=== PATIENT | female | born 1995 | race Caucasian/White ===

== ENCOUNTER 2018-04-24 04:14 | Emergency (ER) | payer BC ==
[2018-04-24] MEDS ORDERED: Diphenoxylat/Atrop 2.5-0.025M* 1 TAB PO ONE (04:34)
[2018-04-24] MEDS ORDERED: NS 0.9% 1000 ML* 2,000 ML IV ONE (04:34)
[2018-04-24] MEDS ORDERED: Metoclopramide IV* 5 MG/ML 2 ML VIAL IV SLOW PU ONE (04:34)
[2018-04-24] MEDS ORDERED: Dicyclomine CAP* 10 MG PO ONE (04:35)
[2018-04-24 05:58] LABS: ABS Basophils 0.1 10^3/ul (0-0.2); ABS Eosinophils 0.1 10^3/ul (0-0.6); ABS Monocytes 0.9 10^3/ul (0-0.8); ABS Neutrophils 12.6 10^3/ul (1.5-7.7); ABS Nucleated RBC 0 10^3/ul; Eosinophil % 0.6 % (0-6); Hematocrit 43 % (35-47); Hemoglobin 14.3 g/dl (12.0-16.0); Lymphocyte % 12.7 % (25-47); Mean Corpuscular HGB Conc 34 g/dl (31-36); Mean Corpuscular Hemoglobin 31 pg (27-31); Mean Corpuscular Volume 93 fL (80-97); Mean Platelet Volume 8.8 um3 (7.4-10.4); Nucleated Red Blood Cells % 0; Platelet Count 299 10^3/ul (150-450); Red Blood Count 4.63 10^6/ul (4.0-5.4); Red Cell Distribution Width 13 % (10.5-15); White Blood Count 15.5 10^3/ul (3.5-10.8)
[2018-04-24 06:10] LABS: EGFR Non-African American 106.4 (>60)
--- NOTE | 2018-04-24 06:45 | ED ---
Ortega Oliveira Rebecca, scribed for Michelle Alba MD on 04/24/18 at 0435 . Abdominal Pain/Female - HPI Summary HPI Summary: Pt is a 22 y/o F who presents to ED c/o abdominal pain. Sx began suddenly this morning at 0300. Pain is in the periumbilical region and on triage is severe, ranked 10/10 and characterized as sharp. Sx aggravated and alleviated by nothing. Additionally c/o N/V/D. PMHx type 1 DM. Does not remember what she had for dinner. - History of Current Complaint Chief Complaint: EDAbdPain Stated Complaint: ABD PAIN Time Seen by Provider: 04/24/18 04:25 Hx Obtained From: Patient Onset/Duration: Sudden Onset, Still Present Severity Currently: Severe Pain Intensity: 10 Pain Scale Used: 0-10 Numeric Location: Umbilical Character: Sharp Aggravating Factor(s): Nothing Alleviating Factor(s): Nothing Associated Signs and Symptoms: Positive: Nausea, Vomiting, Diarrhea Allergies/Adverse Reactions: Allergies Allergy/AdvReac Type Severity Reaction Status Date / Time insulin lispro Allergy Hives Verified 04/24/18 04:33 [From Humalog Mix] insulin lispro protamine Allergy Hives Verified 04/24/18 04:33 [From Humalog Mix] PMH/Surg Hx/FS Hx/Imm Hx Endocrine/Hematology History: Reports: Hx Diabetes Cardiovascular History: Denies: Hx Pacemaker/ICD Sensory History: Denies: Hx Hearing Aid Psychiatric History: Denies: Hx Panic Disorder - Surgical History Surgery Procedure, Year, and Place: Infectious Disease History: No Infectious Disease History: Denies: Traveled Outside the [place] in Last 30 Days - Family History Known Family History: Negative: Hypertension - Social History Substance Use Type: Reports: None Smoking Status (MU): Never Smoked Tobacco Review of Systems Negative: Fever Positive: Abdominal Pain, Vomiting, Diarrhea, Nausea All Other Systems Reviewed And Are Negative: Yes Physical Exam - Summary Physical Exam Summary: VITAL SIGNS: Reviewed. GENERAL: ~Patient is a well-developed and nourished female who is lying comfortable in the stretcher. Patient is not in any acute respiratory distress. HEAD AND FACE: No signs of trauma. No ecchymosis, hematomas or skull depressions. No sinus tenderness. EYES: PERRLA, EOMI x 2, No injected conjunctiva, no nystagmus. EARS: Hearing grossly intact. Ear canals and tympanic membranes are within normal limits. MOUTH: Oropharynx within normal limits. NECK: Supple, trachea is midline, no adenopathy, no JVD, no carotid bruit, no c- spine tenderness, neck with full ROM. CHEST: Symmetric, no tenderness at palpation LUNGS: Clear to auscultation bilaterally. No wheezing or crackles. CVS: Regular rate and rhythm, S1 and S2 present, no murmurs or gallops appreciated. ABDOMEN: Soft, non-tender. No signs of distention. No rebound no guarding, and no masses palpated. Bowel sounds are normal. EXTREMITIES: FROM in all major joints, no edema, no cyanosis or clubbing. NEURO: Alert and oriented x 3. No acute neurological deficits. Speech is normal and follows commands. SKIN: Dry and warm ~ Triage Information Reviewed: Yes Vital Signs On Initial Exam: Initial Vitals Temp Pulse Resp BP Pulse Ox 97.2 F 85 18 124/76 98 04/24/18 04:25 04/24/18 04:25 04/24/18 04:25 04/24/18 04:25 04/24/18 04:25 Vital Signs Reviewed: Yes Diagnostics - Vital Signs Vital Signs Temp Pulse Resp BP Pulse Ox 04/24/18 04:25 97.2 F 85 18 124/76 98 - Laboratory Result Diagrams: 04/24/18 05:35 04/24/18 05:35 Lab Statement: Any lab studies that have been ordered have been reviewed, and results considered in the medical decision making process. Re-Evaluation - Re-Evaluation First Eval Re-Evaluation Time: :18 Change: Improved Comment: Pts pain is much better, no further V/D in the ED. Repeat examination : the abdomen is soft, nontender and she has hyperactive BS. Abdominal Pain Fem Course/Dx - Course Course Of Treatment: Pt is a 22 y/o F who presents to ED c/o sudden osnet periumbilical abdominal pain since 299, currently severe and sharp. Additionally c/o N/V/D. PMHx type 1 DM. Does not remember what she had for dinner. Blood work was done with results including a CRP of 11.72, glucose of 204, and WBC of 15.5. In the ED course, pt was given fluids, Bentyl, Lomotil, and Reglan which improved symptoms. Pts pain is much better, no further V/D in the ED. Repeat examination after medication: the abdomen is soft, nontender and she has hyperactive BS. The pt will be signed out to Dr. Conde, pending dispo, awaiting UA and reevaluation. Allergies noted. - Diagnoses Provider Diagnoses: Acute gastroenteritis Discharge - Sign-Out/Discharge Documenting (check all that apply): Sign-Out Patient Signing out patient TO: Taylor Conde - Discharge Plan Referrals: No Primary Care Phys,NOPCP [Medical Doctor] - The documentation as recorded by the Ortega samano Rebecca accurately reflects the service I personally performed and the decisions made by me, Michelle Alba MD.
[2018-04-24 07:55] LABS: Urine Appearance Clear; Urine Blood Negative (Negative); Urine Color Yellow; Urine Ketones Negative (Negative); Urine Protein Negative (Negative); Urine Specific Gravity 1.005 (1.010-1.030); Urine Urobilinogen Negative (Negative)
[2018-04-24 09:13] VITALS: BP 110/82
--- NOTE | 2018-04-25 01:47 | ED ---
Pati Oliveira Gabriel, scribed for Taylor Conde MD on 04/24/18 at 0749 . Progress - Progress Note Progress Note: This patient is a 22 y/o F that was signed out from Dr. Alba on shift change awaiting UA. Pt is a type 1 diabetic and has a pump that has been running since she has been in the ED. She states the ABD pain has almost completely resolved. She denies dysuria and nausea. She has no hx of DKA or kidney stones. Pt has had appendectomy. She has had IDDM for 16 years. Appearance: Well-appearing, minimal pain distress, well-nourished, insulin pump in place, Skin: Warm, color reflects adequate perfusion, dry Head: Normal Head/Face inspection, atraumatic Eyes: Conjunctiva clear ENT: Normal inspection Neck: Supple, no nodes, no JVD Respiratory: Lungs clear, normal breath sounds, no respiratory distress Cardio: RRR, No murmur, pulses normal, brisk capillary refill Abdomen: Soft, nontender, no masses, no guarding, no rebound, no CVA tenderness Bowel sounds: Present Musculoskeletal: Strength Intact/ROM intact, no calf tenderness, no edema. Psychological: Normal Neuro: Alert, muscle tone normal, no focal deficit Re-Evaluation - Re-Evaluation First Eval Re-Evaluation Time: 08:44 Change: Improved Comment: Pt is sitting upright and in no distress, she states pain has resolved. She was able to eat breakfast without nausea or vomiting. Pt was able to jump up and down without pain. She is agreeable to discharge. Course/Dx - Course Course Of Treatment: This patient is a 22 y/o F that was signed out from Dr. Alba on shift change awaiting UA. Pt is a type 1 diabetic and has a pump that has been running since she has been here. She states the ABD pain has almost completely resolved. She denies dysuria and nausea. She has no hx of DKA or kidney stones. Pt has had appendectomy. She has had IDDM for 16 years. Patient tolerated PO intake in the ED and her blood glucose was rechecked after. The pt did not have any imaging while in the ED and her discomfort was improved with bentyl, reglan and lomotil, all given by Dr. Alba. She also had IV fluids. The patient is feeling better and agrees to discharge. Her roommate is with her and will drive them home. - Diagnoses Provider Diagnoses: Abdominal pain, Poorly controlled diabetes mellitus Discharge - Sign-Out/Discharge Documenting (check all that apply): Discharge/Admit/Transfer, Receiving Sign-Out Receiving patient FROM: Michelle Alba - Discharge Plan Condition: Stable Disposition: HOME Patient Education Materials: Acute Abdominal Pain (ED) Referrals: [facility] [place] [facility]ICIAN REFERRAL [Outside] - 3 Days Additional Instructions: You were given Lomotil, Bentyl and Reglan to help with abdominal pain and diarrhea while you were in the ER. Your white blood cell count was elevated at 15, but your pain is improved and there is no source of infection identified at this time, so it may be elevated with the diarrhea, or with inflammation secondary to your diabetes. Call the [facility] if you need interim care while you are in [place], before you return to your PCP, Dr. Mike, in [place], or until you get established with a PCP in [place]. Call [phone] to get an appointment at this clinic if needed. Return to the ER if you have new or worsening symptoms. - Billing Disposition and Condition Condition: STABLE Disposition: Home The documentation as recorded by the Pati samano Gabriel accurately reflects the service I personally performed and the decisions made by me, Taylor Conde MD.
== END 2018-04-24 09:10 | disposition home or self-care (01) ==
LOC: ED 04:14
DX: R10.9 Unspecified abdominal pain (principal); E11.649 Type 2 diabetes mellitus with hypoglycemia without coma; Z96.41 Presence of insulin pump (external) (internal)
CPT/HCPCS: 36415; 80053; 81003; 81015; 82803; 83690; 84702; 85025; 86140; 87086; 99283; A9270-GY; J2765